=== PATIENT | female | born 1965 | race Two or more races ===

== ENCOUNTER 2024-02-02 12:09 | Emergency (ER) | payer MEDICAID, OTHER ==
[~2024-02-02] VITALS: Ht 170.2 cm; Wt 60.0 kg
[2024-02-02 13:34] VITALS: BP 174/98; PULSE 84; RESP 24; TEMP 98.2; O2SAT 100
[2024-02-02] MEDS: KETOROLAC TROMETH 60MG/2ML VIAL IM ONE (13:46)
[2024-02-02] MEDS: BACLOFEN 10 MG TAB PO ONE (13:46)
[2024-02-02] MEDS ORDERED: BACL10TA PO (13:46)
[2024-02-02] MEDS ORDERED: NAPR-746 PO (13:46)
[2024-02-02] MEDS ORDERED: BACDST PO (13:46)
== END 2024-02-02 13:59 | disposition home or self-care (01) ==
LOC: ER 12:09
DX: S90.465A Insect bite (nonvenomous), left lesser toe(s), initial encounter (principal); W57.XXXA Bitten or stung by nonvenomous insect and other nonvenomous arthropods, initial encounter; Y93.89 Activity, other specified; Y92.89 Other specified places as the place of occurrence of the external cause; Y99.8 Other external cause status
CPT/HCPCS: 96372; 99283; J1885